=== PATIENT | female | born 1955 | race Caucasian/White ===

== ENCOUNTER 2021-01-05 15:59 | Outpatient (REF) | payer BC, SELFPAY ==
--- NOTE | ~2021-01-05 | MM_ITS ---
EXAMINATION: MM SCREENING DIGITAL BREAST TOMOSYNTHESIS, BILATERAL CLINICAL INFORMATION: Screening. Asymptomatic. The lifetime risk of breast cancer based on the Tyrer-Cuzick Model is 7.7%. COMPARISON: Mammography: December 19, 2019 and studies dating back to June 14, 2011 TECHNIQUE: Digital breast tomosynthesis is performed in both the craniocaudal and mediolateral oblique views along with computer-aided detection (CAD). Synthesized 2D images are generated from the tomosynthesis. FINDINGS: The breasts are almost entirely fatty (ACR BI-RADS breast composition Category a). There are no significant masses, abnormal calcifications, or other abnormalities. MM/MM tomosynthesis screening BI IMPRESSION: There are no significant changes from prior study. ASSESSMENT: BI-RADS 1: Negative RECOMMENDATION: Routine annual mammography screening. This patient's information was entered into a reminder system with a target due date for their next mammogram.
== END 2021-01-05 16:00 | disposition home or self-care (01) ==
LOC: HO.MAMMO 15:59
PROVIDERS: PCP Internal Medicine Endocrinology, Diabetes & Metabolism; Visit Provider Obstetrics & Gynecology Obstetrics
DX: Z12.31 Encounter for screening mammogram for malignant neoplasm of breast (principal)
CPT/HCPCS: 77063; 77067

== ENCOUNTER 2022-01-11 10:08 | Outpatient (REF) | payer OTHER, SELFPAY ==
--- NOTE | ~2022-01-11 | MM_ITS ---
EXAMINATION: MM SCREENING DIGITAL BREAST TOMOSYNTHESIS, BILATERAL CLINICAL INFORMATION: Screening. Asymptomatic. The lifetime risk of breast cancer based on the Tyrer-Cuzick Model is 9%. COMPARISON: Mammography: 01/05/2021, 12/19/2019, 09/19/2018 TECHNIQUE: Digital breast tomosynthesis is performed in both the craniocaudal and mediolateral oblique views along with computer-aided detection (CAD). Synthesized 2D images are generated from the tomosynthesis. FINDINGS: The breasts are almost entirely fatty (ACR BI-RADS breast composition Category a). There are no significant masses, abnormal calcifications, or other abnormalities. Background stromal markings and island of fibroglandular tissue right mid upper outer quadrant are stable. No developing density. No architectural abnormality. The axilla and skin contours are unremarkable. MM/MM tomosynthesis screening BI IMPRESSION: No mammographic evidence of malignancy. ASSESSMENT: BI-RADS 1: Negative RECOMMENDATION: Routine annual mammography screening. This patient's information was entered into a reminder system with a target due date for their next mammogram.
== END 2022-01-11 10:09 | disposition home or self-care (01) ==
LOC: HO.MAMMO 10:08
PROVIDERS: Visit Provider Internal Medicine Endocrinology, Diabetes & Metabolism
DX: Z12.31 Encounter for screening mammogram for malignant neoplasm of breast (principal)
CPT/HCPCS: 77063; 77067

== ENCOUNTER → 2023-01-17 10:45 | Outpatient (BNV) | payer OTHER, SELFPAY | PROVIDERS: PCP Internal Medicine Endocrinology, Diabetes & Metabolism; Visit Provider Radiology Diagnostic Radiology | DX: Z12.31 Encounter for screening mammogram for malignant neoplasm of breast (principal) | CPT/HCPCS: 77063; 77067 ==

== ENCOUNTER 2023-01-17 10:54 | Outpatient (REF) | payer OTHER, SELFPAY | END 2023-01-17 10:55 | disposition home or self-care (01) | LOC: HO.MAMMO 10:54 | PROVIDERS: PCP Internal Medicine Endocrinology, Diabetes & Metabolism; Visit Provider Internal Medicine Endocrinology, Diabetes & Metabolism | DX: Z12.31 Encounter for screening mammogram for malignant neoplasm of breast (principal) | CPT/HCPCS: 77063; 77067 ==

== ENCOUNTER 2023-02-15 13:23 | Outpatient (REF) | payer OTHER, SELFPAY ==
--- NOTE | ~2023-02-15 | MM_ITS ---
EXAMINATION: BONE DENSITOMETRY CLINICAL INDICATION: Age-related osteoporosis. COMPARISON: Previous BD dated 09/12/2017 and baseline BD dated 07/17/2015. TECHNIQUE: Using a SwiftKey DXA System (software version: 13.1) manufactured by [employer], dual-energy x-ray absorptiometry was performed of the lumbar spine and left hip. The images are of good technical quality. Summary results are attached. FINDINGS: LEFT FEMUR, NECK: Current: BMD 0.846 g/cm2, Z-score -0.6, T-score -1.4, osteopenia. Prior: BMD 0.822 g/cm2. Baseline: BMD 0.836 g/cm2. LEFT FEMUR, TOTAL: Current: BMD 0.965 g/cm2, Z-score 0.1, T-score -0.3, normal, 0.0% no change from previous, 1.4% decrease from baseline (<5% change is not significant). Prior: BMD 0.965 g/cm2. Baseline: BMD 0.979 g/cm2. AP SPINE L1-L4: Current: BMD 1.154 g/cm2, Z-score 0.3, T-score -0.2, normal, 2.8% decrease from previous, 1.6% increase from baseline (<5% change is not significant). Prior: BMD 1.187 g/cm2. Baseline: BMD 1.136 g/cm2. IDENTIFIED RISK FACTORS: Menopause history of fracture (adult). HISTORY OF FRACTURE: Humerus/shoulder. MEDICATIONS: Multivitamin. MM/XR DEXA axial skeleton IMPRESSION: 1. DIAGNOSIS: Osteopenia based on the lowest T-score value of -1.4 in the femoral neck applying World Health Organization criteria. 2. 10-YEAR FRACTURE RISK PREDICTION, FRAX: Major osteoporotic fracture (clinical spine, forearm, hip or shoulder) 13.1%. Hip fracture 1.3%. 3. Treatment Recommendations: NOF guidelines recommend consideration for treatment in postmenopausal women and men age 50 and older presenting with the following: -A hip or vertebral (clinical or morphometric) fracture. -T-score less than or equal to -2.5 at the femoral neck or spine after appropriate evaluation to exclude secondary causes. -Low bone mass at the hip or spine and a 10-year fracture probability by FRAX of greater than or equal to 3% for hip fracture or greater than or equal to 20% for major osteoporotic fracture based on the [place] adapted WHO algorithm. 4. Other Recommendations: All treatment decisions require clinical judgment and consideration of individual patient factors, including patient preferences, comorbidities, previous drug use, risk factors not captured in the FRAX model (e.g. frailty, falls, vitamin D deficiency, increased bone turnover, interval significant decline in bone density) and possible under or overestimation of fracture risk by FRAX. Additional medical evaluation for secondary cause of low bone mineral density may be appropriate. FUTURE SCAN RECOMMENDATION: People with diagnosed cases of osteoporosis or at high risk for fracture should have regular bone mineral density tests. For patients eligible for Medicare, routine testing is allowed once every 2 years. The testing frequency can be increased to one year for patients who have rapidly progressing disease, those who are receiving or discontinuing medical therapy to restore bone mass, or have additional risk factors.
== END 2023-02-15 13:24 | disposition home or self-care (01) ==
LOC: HO.MAMMO 13:23
PROVIDERS: PCP Internal Medicine Endocrinology, Diabetes & Metabolism; Visit Provider Internal Medicine Endocrinology, Diabetes & Metabolism
DX: Z13.820 Encounter for screening for osteoporosis (principal); M81.0 Age-related osteoporosis without current pathological fracture; Z78.0 Asymptomatic menopausal state
CPT/HCPCS: 77080

== ENCOUNTER 2024-01-23 12:27 | Outpatient (REF) | payer MEDICARE, SELFPAY ==
--- NOTE | ~2024-01-23 | MM_ITS ---
EXAMINATION: MM SCREENING DIGITAL BREAST TOMOSYNTHESIS, BILATERAL CLINICAL INFORMATION: Screening. Asymptomatic. COMPARISON: Mammography: Comparison is made with available priors TECHNIQUE: Digital breast mammography with tomosynthesis is performed in both the craniocaudal and mediolateral oblique views along with computer-aided detection (CAD). FINDINGS: There are scattered areas of fibroglandular density (ACR BI-RADS breast composition Category b). There are no significant masses, abnormal calcifications, or other abnormalities. MM/MM tomosynthesis screening BI IMPRESSION: No mammographic evidence of malignancy. ASSESSMENT: BI-RADS BI-RADS 1 - Negative RECOMMENDATION: Routine annual mammography screening. 1 year F/U This examination should not preclude the clinical evaluation of a suspicious palpable abnormality. This patient's information was entered into a reminder system with a target due date for their next mammogram. Electronically signed by: Jammie Field DO 02/02/2024 09:04 AM EDT
== END 2024-01-23 12:28 | disposition home or self-care (01) ==
LOC: HO.MAMMO 12:27
PROVIDERS: PCP Internal Medicine Endocrinology, Diabetes & Metabolism; Referring Provider Obstetrics & Gynecology; Visit Provider Internal Medicine Endocrinology, Diabetes & Metabolism
DX: Z12.31 Encounter for screening mammogram for malignant neoplasm of breast (principal)
CPT/HCPCS: 77063; 77067

== ENCOUNTER → 2024-01-23 12:30 | Outpatient (BNV) | payer MEDICARE, SELFPAY | PROVIDERS: PCP Internal Medicine Endocrinology, Diabetes & Metabolism; Referring Provider Obstetrics & Gynecology; Visit Provider Internal Medicine | DX: Z12.31 Encounter for screening mammogram for malignant neoplasm of breast (principal) | CPT/HCPCS: 77063; 77067 ==

== ENCOUNTER 2025-02-05 12:49 | Outpatient (REF) | payer MEDICARE, SELFPAY ==
--- OUTSIDE RECORDS SUMMARY | 2025-02-05 16:11 | XMS_ITS ---
Author Name [facility] Organization Unknown Results Test Name/Text Value Interpretation Date Range Source Result Not Detected Normal 03/30/2024 - [facility] Est. average glucose Bld gHb Est-mCnc 111.0 mg/dL Normal 03/29/2024 [facility] Hgb A1c MFr Bld 5.5 % Normal 03/29/2024 - 5.[address] Transferrin SerPl-mCnc 255.0 mg/dL Normal 03/29/2024 200 - 360 [facility] Prealb SerPl-mCnc 29.0 mg/dL Normal 03/29/2024 20 - 40 [facility] Calcium SerPl-mCnc 10.2 mg/dL Normal 03/29/2024 8.7 - 10. 5 [facility] GFR/BSA.pred SerPlBld [id number]-[id number]-[id number] 81.0 Normal 03/29/2024 59 - [facility] BUN SerPl-mCnc 21.0 mg/dL Normal 03/29/2024 8 - [address] Globulin Ser Calc-mCnc 3.2 g/dL Normal 03/29/2024 1.5 - 3.9 [facility] Prot SerPl-mCnc 7.6 g/dL Normal 03/29/2024 6.3 - 8.[address] CO2 SerPl-sCnc 25.0 mmol/L Normal 03/29/2024 22 - 33 HH CCT Chloride SerPl-sCnc 104.0 mmol/L Normal 03/29/2024 98 - 1 07 [facility] Sodium SerPl-sCnc 142.0 mmol/L Normal 03/29/2024 136 - 14 5 [facility] Albumin SerPl-mCnc 4.4 g/dL Normal 03/29/2024 3.4 - 4.8 [facility] Glucose SerPl-mCnc 94.0 mg/dL Normal 03/29/2024 65 - 99 [facility] BUN/Creat SerPl 26.0 Ratio Above high normal 03/29/2024 10 - 25 [facility] Potassium SerPl-sCnc 4.5 mmol/L Normal 03/29/2024 3.4 - 5 .3 [facility] Bilirub SerPl-mCnc 0.4 mg/dL Normal 03/29/2024 0.2 - 1 [facility] ALT SerPl-cCnc 30.0 U/L Normal 03/29/2024 10 - 50 [facility] T ALP SerPl-cCnc 92.0 U/L Normal 03/29/2024 32 - 122 [facility] T Anion Gap Bld-sCnc 13.0 Normal 03/29/2024 7 - 17 [facility] Albumin/Glob SerPl 1.4 Ratio Normal 03/29/2024 1 - 3 [facility] AST SerPl-cCnc 30.0 U/L Normal 03/29/2024 10 - 50 [facility] T Creat SerPl-mCnc 0.8 mg/dL Normal 03/29/2024 0.4 - 1.1 HH CCT MCV RBC Auto 96.0 fL Normal 03/29/2024 80 - 100 [facility] RBC num Bld Auto 4.52 Mil/uL Normal 03/29/2024 4 - 5.4 [facility] MCHC RBC Auto-mCnc 35.9 g/dL Normal 03/29/2024 30 - 36 [facility] Hct VFr Bld Auto 43.2 % Normal 03/29/2024 35 - 47 HH CCT MCH RBC Qn Auto 34.3 pg Above high normal 03/29/2024 27 - 31 [facility] Neutrophils num Bld Auto 2.92 Thou/uL Normal 03/29/2024 2 - 7.5 [facility] Hgb Bld-mCnc 15.5 g/dL Normal 03/29/2024 11.7 - 15.7 [facility] T Eosinophil num Bld Auto 0.12 Thou/uL Normal 03/29/2024 0 - 0.7 [facility] Imm Granulocytes/leuk NFr Bld Auto 0.4 % Normal 03/29/2024 [facility] Lymphocytes/leuk NFr Bld Auto 29.5 % Normal 03/29/2024 [facility] WBC num Bld Auto 5.1 Thou/uL Normal 03/29/2024 4 - 11 [facility] Basophils num Bld Auto 0.03 Thou/uL Normal 03/29/2024 0 - 0.2 [facility] Basophils/leuk NFr Bld Auto 0.6 % Normal 03/29/2024 [facility] Monocytes/leuk NFr Bld Auto 10.0 % Normal 03/29/2024 [facility] RDW RBC Auto-Rto 12.7 % Normal 03/29/2024 11.5 - 14.5 [facility] Platelet num Bld Auto 329.0 Thou/uL Normal 03/29/2024 150 - 450 [facility] Monocytes num Bld Auto 0.51 Thou/uL Normal 03/29/2024 0.2 - 1.5 [facility] Eosinophil/leuk NFr Bld Auto 2.3 % Normal 03/29/2024 [facility] Lymphocytes num Bld Auto 1.51 Thou/uL Normal 03/29/2024 1.5 - 4.5 [facility] PMV Bld Auto 10.0 fL Normal 03/29/2024 7.5 - 12.5 [facility] Neutrophils/leuk NFr Bld Auto 57.2 % Normal 03/29/2024 [facility] Imm Granulocytes num Bld Auto 0.02 Thou/uL Normal 03/29/2024 0 - 0.1 [facility] History of Medication Use Medication Directions Dispensed Refills Start Date End Date [facility] amoxicillin (AMOXIL) 500 MG capsule Take 4 capsules (2,000 mg total) by mouth Pre-Medication. Take 1 hour prior to dental procedure 06/04/2024 active oxyCODONE (ROXICODONE) 5 MG immediate release tablet Take 1 tablet (5 mg total) by mouth 4 times daily (every 6 hours) as needed for severe pain. This is a 1 week supply. Max Daily Amount: 20 mg 05/31/2024 active oxyCODONE (ROXICODONE) 5 MG immediate release tablet Take 1-2 tablets (5-10 mg total) by mouth Every 4 (four) to 6 (six) hours as needed for severe pain. This is a 1 week supply. Max Daily Amount: 60 mg 04/19/2024 05/31/2024 active PANTOprazole (PROTONIX) 20 MG tablet Take 1 tablet (20 mg total) by mouth every morning before breakfast. 04/19/2024 05/20/2024 active senna-docusate (SENNA-S) 8.6-50 MG Take 1 tablet by mouth daily. 04/19/2024 05/07/2024 active tiZANidine (ZANAFLEX) 2 MG tablet Take 1 tablet (2 mg total) by mouth 3 (three) times a day. 04/19/2024 05/07/2024 active cefadroxil (DURICEF) 500 mg capsule Take 1 capsule (500 mg total) by mouth 2 (two) times a day. 04/19/2024 04/27/2024 active acetaminophen (TYLENOL) 500 MG tablet Take 2 tablets (1,000 mg total) by mouth 3 (three) times a day. 04/19/2024 active aspirin enteric coated (ECOTRIN LOW STRENGTH) 81 MG EC tablet Take 1 tablet (81 mg total) by mouth 2 (two) times a day. 04/19/2024 active meloxicam (MOBIC) 15 MG tablet Take 1 tablet (15 mg total) by mouth daily. 04/19/2024 active SUPPLY DME MISC Walker s/p right UKA 02/26/2024 active valsartan (DIOVAN) 80 MG tablet Take 1 tablet (80 mg total) by mouth every evening. 01/30/2024 active acetaminophen (TYLENOL) 500 MG tablet Take 1 tablet (500 mg total) by mouth 4 times daily (every 6 hours) as needed for mild pain. 04/19/2024 aborted Allergies Allergen Reaction Severity Comment Documented Date Source Statu s POVIDONE IODINE RASH/DERMATITIS 02/26/2024 [facility] active Problems Problem Status Onset Date Problem Type Date of Resolution Source Hypertension active ProblemAct [facility] Difficulty walking active EncounterDiagnosisAct [facility] Arthritis of right knee active 2024-04-22 ProblemAct [facility] Muscle weakness active EncounterDiagnosisAct [facility] Graves disease active ProblemAct [facility] T Morbid obesity with BMI of 40.0-44.9, adult active ProblemAct [facility] Status post total right knee replacement active EncounterDiagnosisAct [facility] Prediabetes active ProblemAct [facility] Steatohepatitis active ProblemAct [facility] Encounters Encounter Type Encounter Reason Primary Diagnosis Location Date Ambulatory Presence of right artificial knee joint Presence of right artificial knee joint [facility] 09/11/2024 Ambulatory Presence of right artificial knee joint Presence of right artificial knee joint [facility] 09/04/2024 Ambulatory [facility] 09/03/2024 Ambulatory Presence of right artificial knee joint Presence of right artificial knee joint [facility] 09/03/2024 Ambulatory Presence of right artificial knee joint Presence of right artificial knee joint [facility] 08/29/2024 Ambulatory Presence of right artificial knee joint Presence of right artificial knee joint [facility] 08/27/2024 Ambulatory Presence of right artificial knee joint Presence of right artificial knee joint [facility] 08/20/2024 Ambulatory Presence of right artificial knee joint Presence of right artificial knee joint [facility] 08/15/2024 Ambulatory Presence of right artificial knee joint Presence of right artificial knee joint [facility] 08/13/2024 Ambulatory Presence of right artificial knee joint Presence of right artificial knee joint [facility] 08/06/2024 Ambulatory Presence of right artificial knee joint Presence of right artificial knee joint [facility] 07/31/2024 Ambulatory Presence of right artificial knee joint Presence of right artificial knee joint [facility] 07/29/2024 Ambulatory Presence of right artificial knee joint Presence of right artificial knee joint [facility] 07/18/2024 Ambulatory Presence of right artificial knee joint Presence of right artificial knee joint [facility] 07/16/2024 Ambulatory Presence of right artificial knee joint Presence of right artificial knee joint [facility] 07/11/2024 Ambulatory [facility] 07/08/2024 Ambulatory [facility] 07/05/2024 Ambulatory [facility] 07/02/2024 Ambulatory [facility] 06/27/2024 Ambulatory [facility] 06/24/2024 Ambulatory [facility] 06/19/2024 Ambulatory [facility] 06/17/2024 Ambulatory [facility] 06/13/2024 Ambulatory [facility] 06/11/2024 Ambulatory [facility] 06/05/2024 Ambulatory Pain Pain [facility] 06/04/2024 Ambulatory [facility] 06/03/2024 Ambulatory [facility] 05/27/2024 Ambulatory [facility] 05/24/2024 Ambulatory [facility] 05/22/2024 Ambulatory [facility] 05/16/2024 Ambulatory [facility] 05/14/2024 Ambulatory [facility] 05/09/2024 Ambulatory [facility] 05/07/2024 Ambulatory Presence of right artificial knee joint Presence of right artificial knee joint [facility] 05/07/2024 Ambulatory Presence of right artificial knee joint Presence of right artificial knee joint [facility] 05/06/2024 Ambulatory Unilateral primary osteoarthritis, right knee Unilateral primary osteoarthritis, right knee [facility] 04/22/2024 Ambulatory [facility] 04/02/2024 Ambulatory Unilateral primary osteoarthritis, right knee Unilateral primary osteoarthritis, right knee [facility] 04/02/2024 Ambulatory Encounter for other preprocedural examination Encounter for other preprocedural examination [facility] 03/29/2024 Ambulatory [facility] 01/30/2024 Ambulatory Unilateral primary osteoarthritis, right knee Unilateral primary osteoarthritis, right knee [facility] 01/30/2024 Care Team Organization Name Specialty Phone Email Start Date End Da te [facility] 02/01/2024 10/10/2024 [facility] 01/30/2024 [facility] 12/28/2023
--- OUTSIDE RECORDS SUMMARY | 2025-02-05 16:11 | XMS_ITS | Clinical Summary ---
Author Organization [facility] Address [address] [place] [address] Care Team Providers Care Pipe Stem Aligner Name Role Phone Shakila Dozier MD Primary Care Provid er Tarun Duggan MD Unavailable [phone] Allergies Active Allergy Reactions Criticality Noted Date Comments Povidone Iodine Rash/Dermatitis Low 02/26/2024 Medications SUPPLY DME MISCIndications: Status post right knee replacement Walker s/p right UKA 1 each 4 Active valsartan (DIOVAN) 80 MG tablet Take 1 tablet (80 mg total) by mouth every evening. 4 Active acetaminophen (TYLENOL) 500 MG tabletIndication s:Status post total right knee replacement Take 2 tablets (1,000 mg total) by mouth 3 (three) times a day. 180 tablet 4 Active aspirin enteric coated (ECOTRIN LOW STRENGTH) 81 MG EC tabletIndication s:Status post total right knee replacement Take 1 tablet (81 mg total) by mouth 2 (two) times a day. 60 tablet 4 Active meloxicam (MOBIC) 15 MG tabletIndication s:Status post total right knee replacement Take 1 tablet (15 mg total) by mouth daily. 30 tablet 4 Active PANTOprazole (PROTONIX) 20 MG tabletIndication s:Status post total right knee replacement Take 1 tablet (20 mg total) by mouth every morning before breakfast. 30 tablet 4 Active tiZANidine (ZANAFLEX) 2 MG tabletIndication s:Status post total right knee replacement Take 1 tablet (2 mg total) by mouth 3 (three) times a day. 40 tablet 5 Active senna-docusate (SENNA-S) 8.6-50 MGIndications:St atus post total right knee replacement Take 1 tablet by mouth daily. 14 tablet 5 Active oxyCODONE (ROXICODONE) 5 MG immediate release tabletIndication s:Status post total right knee replacement Take 1 tablet (5 mg total) by mouth 4 times daily (every 6 hours) as needed for severe pain. This is a 1 week supply. Max Daily Amount: 20 mg 28 tablet 5 Active amoxicillin (AMOXIL) 500 MG capsuleIndicatio ns:Status post right knee replacement Take 4 capsules (2,000 mg total) by mouth Pre-Medication . Take 1 hour prior to dental procedure 16 capsule 5 06/19/19 27 Active Active Problems Problem Noted Date Diagnosed Date Arthritis of right knee 04/22/2024 Primary osteoarthritis of right knee 03/26/2024 Steatohepatitis Assessment & Plan (03/26/2024 8:41 AM EST): labs Graves disease Assessment & Plan (03/26/2024 8:46 AM EST): tx Hypertension Assessment & Plan (03/26/2024 8:50 AM EST): Continue Valsartan Prediabetes Assessment & Plan (03/26/2024 8:50 AM EST): A1c Morbid obesity with BMI of 40.0-44.9, adult Assessment & Plan (03/29/2024 2:18 PM EST): Preop A1c: 44.7 Social History Tobacco Use Types Packs/Day Years Used Date Smoking Tobacco: Never Smokeless Tobacco: Never Tobacco Cessation:Counseling Given: Not Answered Alcohol Use Standard Drinks/Week Comments Yes 0 (1 standard drink = 0.6 oz pure alcohol) occasional wine. advised to stop two weeks prior to surgery AUDIT-C Answer Date Recorded Q1: How often do you have a drink containing alc ohol? Monthly or less 03/20/2024 Q2: How many drinks containi ng alcohol do you have on a typical day when you are drinking? 1 or 2 03/20/2024 Q3: How often do you have si x or more drinks on one occasion? Never 03/20/2024 Comments Unknown Sex and Gender Information Value Date Recorded Sex Assigned at Female 01/30/2024 11:01 AM EDT Legal Sex Female 6:50 PM EST Gender Identity Female 01/30/2024 11:01 AM EDT Sexual Orientation Choose not to disclose 2023 11:01 AM EDT Last Filed Vital Signs Vital Sign Reading Time Taken Comments Blood Pressure 135/68 04/23/2024 5:45 AM EST Pulse 64 04/23/2024 5:45 AM EST Temperature 36.3 C (97.3 F) 04/23/2024 5:45 AM EST Respiratory Rate 17 04/23/2024 5:45 AM EST Oxygen Saturation 97% 04/23/2024 5:45 AM EST Inhaled Oxygen Concentration - - Weight 108 kg (237 lb) 04/22/2024 1:48 PM EST Height 154.9 cm (5' 1 ) 04/22/2024 1:48 PM EST Body Mass Index 44.78 04/22/2024 1:48 PM EST Plan of Treatment Upcoming Encounters Date Type Department Care Team (Late st Contact Info) Description 09/02/2025 1:15 PM EDT [facility] Visit [facility] [address] [place] [address] Tarun Duggan MD [address] [place] [address] [address] [place] [address] Health Maintenance Due Date Last Done Comments Advance Care Planning 1955 Hepatitis C Virus Screening 1955 DTaP/Tdap/Td Vaccines (1 - Tdap) 09/27/1975 Mammogram 1996 Colonoscopy 2001 Pneumococcal Vaccines 50+ (1 of 1 - PCV) 2006 RSV Vaccine 50 years and older and Patients (1 - Risk 50-74 years 1-dose series) 2006 Zoster (Shingles) Vaccine (1 of 2) 2006 DXA Bone Density (Females,Ages 65 and older) 2021 Influenza Vaccine 11/22/2024 02/16/2024 COVID-19 Vaccine (2024-2 6 season) 2024 07/23/2020, 06/25/2020 Hepatitis B Vaccines Aged Out No long er eligible based on patient's age to complete this topic Medical Devices Implanted Type Area Source Inspector Device Identifier Shelf Expiration Date Model / Serial / Lot 5517-F-302 Component Femoral 3 Knee Right Crcte Rtn Bead Trthln Pa - [id number] Implanted:Qt y: 1 on 04/22/2024 by Tarun Duggan MD at [facility] Joint Prosthesis Right: Knee [employer] - DIV STR [id number] 06/19/2027 5517-F-3 02 / / [id number] Insert Tibial 2 10mm Knee X3 Cndrl Stab Brng Trthln Sterl Lf - [id number] Implanted:Qt y: 1 on 04/22/2024 by Tarun Duggan MD at [facility] Joint Prosthesis Right: Knee [employer] - DIV STR [id number] 05/30/2028 5531-G-2 10-E / / [id number] 5536-B-200 Baseplate Tibial Trthln 2 Knee Tritanium - [id number] Implanted:Qt y: 1 on 04/22/2024 by Tarun Duggan MD at [facility] Joint Prosthesis Right: Knee [employer] - DIV STR [id number] 04/26/2028 5536-B-2 00 / / [id number] Insurance [employer] MEDICARE OUT OF NETWORK [address] [id number] [place] MEDICARE OUT OF NETWORK Advance Directives * Full Code (Latest Code Status on File) Date Activated Date Inactivated Comments 04/22/2024 2:12 PM * Full Code Date Activated Date Inactivated Comments 04/22/2024 6:27 AM 04/22/2024 2:12 PM Care Teams Pipe Stem Aligner Relationship Specialty Start Date End Date Shakila Dozier MD [address] [facility] [place] [address] PCP - General Endocrinology 01/30/24 Tarun Duggan MD [address] [place] [id number] Physician Surgery, Orthopedic 02/27/24
== END 2025-02-05 12:50 | disposition home or self-care (01) ==
LOC: HO.MAMMO 12:49
PROVIDERS: PCP Internal Medicine Endocrinology, Diabetes & Metabolism; Visit Provider Internal Medicine Endocrinology, Diabetes & Metabolism
DX: Z12.31 Encounter for screening mammogram for malignant neoplasm of breast (principal)
CPT/HCPCS: 77063; 77067

== ENCOUNTER → 2025-02-05 13:00 | Outpatient (BNV) | payer MEDICARE, SELFPAY | PROVIDERS: PCP Internal Medicine Endocrinology, Diabetes & Metabolism; Visit Provider Radiology Body Imaging | DX: Z12.31 Encounter for screening mammogram for malignant neoplasm of breast (principal) | CPT/HCPCS: 77063; 77067 ==